=== PATIENT | male | born 1955 | race Caucasian/White ===

== ENCOUNTER 2024-08-04 12:36 | Emergency (ER) | payer MEDICARE, SELFPAY ==
[2024-08-04 12:49] VITALS: BP 131/76; PULSE 94; TEMP 36.8; O2SAT 97; BMI 35.9
[2024-08-04 13:56] VITALS: PULSE 70
[2024-08-04] MEDS: MORPHINE SULFATE 4 MG/ML VIAL 10 MG IM (15:24)
[2024-08-04] MEDS: ONDANSETRON 4 MG RAPDIS TABLET SL (15:31)
--- NOTE | 2024-08-04 15:52 | ED_ITS ---
HPI HPI - General Adult General Chief complaint: Extremity Injury, Upper Stated complaint: fall - rib pain Time Seen by Provider: 08/04/24 13:10 Source: patient Mode of arrival: walk-in Limitations: no limitations History of Present Illness HPI narrative: Patient is a 69-year-old male who is presenting to the ER with chief complaint of severe left-sided lateral chest wall/rib pain. Patient fell today. Patient was mowing the grass. Patient was out by the road. Patient had a small area he was going down and up a small ditch. Patient had slipped. Patient stated that he landed his left lateral chest wall against the street/concrete/pavement. Patient is at bedside. Patient is on Xarelto. Patient did not hit his head. Patient has no headache or neck pain. Patient has no bruising to the left side of his chest. Patient also is having mild left shoulder pain. Patient is having pain with deep inspiration. Patient has mild pain and mild bruising to left elbow, otherwise no other acute complaint. Patient did not take anything for pain prior to arrival. Patient had ice applied. No nausea, vomiting. Patient did not hit his head. No headache, neck pain, loss of co nsciousness, no other acute complaints. All systems are negative except as noted/marked. All systems reviewed and otherwise negative. Nurses note and vital signs reviewed and patient is not hypoxic. General: The patient appears moderate distress secondary to pain. Patient is resting uncomfortably on cart. Patient is not toxic, lethargic, or listless Skin: Warm, dry, no pallor noted. There is no rash noted. No petechiae, purpura. Patient has mild abrasion/bruising to left elbow. Full flexion extension supination posterior left elbow with no difficulty. Head: Normocephalic, atraumatic; no midline or paracervical tenderness to palpation. Full range of motion of cervical spine no difficulty. No scalp hematoma. Eye: Normal conjunctiva, no drainage, EOMI. PERRL Ears, Nose, Mouth, and Throat: oral mucosa is moist. Nares patent. Mouth without vesicles. Cardiovascular: Regular Rate and Rhythm, no murmur, gallop, rub. Patient has moderate to severe tenderness palpation to the left lateral chest wall, over ribs approximately 4?9. Patient has no significant tenderness to palpation to the left anterior or posterior chest wall. Patient has no crepitus. No signs of flail chest. With deep palpation to the left anterior and left posterior chest wall, it is not reproducing pain to left lateral chest wall. Respiratory: Patient is in no distress, no accessory muscle use, lungs are clear to auscultation, no wheezing, rales or rhonchi Back: non-tender, no CVA tenderness bilaterally to percussion. No CT LS midline pain GI: no tenderness to palpation, no masses appreciated. No rebound, guarding, or rigidity noted. No distention Musculoskeletal: Patient has full range of motion of all of the extremities. Patient has mild pain with flexion extension abduction of left shoulder, minimal pain to the left AC joint. No signs of fracture dislocation. No motor, sensory, or focal neurological deficits. Neurological: A&O x4, normal speech Psychiatric: Cooperative Related Data Previous Rx's ?Medication ?Instructions ?Recorded oxycodone-acetaminophen 5 mg-325 1 tab PO Q4H PRN pain #10 tabs 08/04/24 mg tablet (Percocet) Allergies Allergy/AdvReac Type Severity Reaction Status Date / Time No Known Drug Allergies Allergy Verified 08/04/24 12:49 Opioid HPI Opioid Management Most Recent Opioid Data: Last Pain Scale 7 08/04/24 15:24 08/04/24 Last ED Pain Assessment 08/04/24 13:56 Last MAR Pain Assessment 08/04/24 15:24 PFSH PFSH Social History Little interest or pleasure in doing things: not at all Feeling down, depressed, or hopeless: several days Exam Constitutional Vital Signs, click to edit/add: Last Vital Signs Temp 98.2 F 08/04/24 12:49 Pulse 70 08/04/24 13:56 Resp 18 08/04/24 12:49 BP 131/76 08/04/24 12:49 Pulse Ox 97 08/04/24 12:49 O2 Del Method Room Air 08/04/24 12:49 Course Vital Signs Vital signs: Vital Signs Temperature 98.2 F 08/04/24 12:49 Pulse Rate 94 H 08/04/24 12:49 Respiratory Rate 18 08/04/24 12:49 Blood Pressure 131/76 08/04/24 12:49 Pulse Oximetry 97 08/04/24 12:49 Oxygen Delivery Method Room Air 08/04/24 12:49 Temperature 98.2 F 08/04/24 12:49 Pulse Rate 70 08/04/24 13:56 Respiratory Rate 18 08/04/24 12:49 Blood Pressure 131/76 08/04/24 12:49 Pulse Oximetry 97 08/04/24 12:49 Oxygen Delivery Method Room Air 08/04/24 12:49 Medical Decision Making MDM Narrative Medical decision making narrative: Patient seen and examined: Clinical presentation and history is concerning for left lateral chest wall pain, rib pain, left shoulder pain Differential diagnosis includes but is not limited to: Left rib fracture, left pneumothorax, left hemothorax, left shoulder fracture, left shoulder sprain, left elbow contusion, fall Diagnostics and management: Patient will have laboratory studies Relevant laboratory interpretation: None Radiological studies: Please see the formal radiological report. CT of the chest shows no acute fracture, no acute lung injury. Reevaluation: Patient was given IM morphine 10 mg, along with Zofran prophylactically. Patient had ice applied. Initially patient was not having significant amount of pain, but he was at discharge. Patient was given a incentive spirometer. Patient was sent home with a prescription for Percocet. Patient has had pain medication At home previously with his previous left knee replacement that was done in March 2024 patient. Patient is aware of constipation and side effect to pain medication. Patient is taking Xarelto daily. Patient is aware not to take Tylenol and Percocet together. Patient was given incentive spirometer in the ER as well. Education done. Shared decision making: I discussed with the patient the necessary laboratory findings and radiological findings. Social barriers to healthcare: There are no food insecurities, there is no issue with transportation, there are no insurance barriers. Disposition: I discussed with the patient education on ice, using senna spirometer, pain medication as needed and following up with PCP. Diagnosis: Left rib contusion, left shoulder pain, left elbow pain, fall, chest wall pain Discharge Plan Discharge Chief Complaint: Extremity Injury, Upper Clinical Impression: Chest wall pain, Acute costochondritis, Left shoulder pain, Contusion of rib on left side Patient Disposition: Home, Self-Care Time of Disposition Decision: 15:41 Condition: Fair Prescriptions / Home Meds: New oxycodone-acetaminophen [Percocet] 5-325 mg tablet 1 tab PO Q4H PRN (Reason: pain) Qty: 10 0RF Print Language: Honduran Instructions: Costochondritis (ED), P.R.I.C.E. Treatment (ED), Shoulder Pain (ED), Chest Wall Pain (ED), Rib Contusion (ED) Additional Instructions: Alternate Tylenol If you are having severe pain, substitute a Percocet tablet instead of Tylenol. Do not take Tylenol and Percocet at the same time, you may actually take too much Tylenol at 1 setting or in 1 day. Maximum Tylenol dose of Tylenol is 3000 mg a day. Use ice 20 minutes on, 20 minutes off. Do not use heat. Use ice for the next 1 to 2 weeks. Use incentive spirometer 10-15 times every hour while you are awake for the next 2 weeks to help prevent atelectasis/pneumonia If you need additional pain medication, follow-up with your PCP. Use stool softeners to help prevent constipation as discussed Referrals: CELY DELUNA [Primary Care Provider] - 1 week
[2024-08-04 16:07] VITALS: PULSE 60; O2SAT 97
== END 2024-08-04 16:11 | disposition home or self-care (01) ==
PROVIDERS: Emergency Provider Emergency Medicine; Family Provider Internal Medicine; PCP Internal Medicine
DX: S20.212A Contusion of left front wall of thorax, initial encounter (principal); R07.89 Other chest pain; M94.0 Chondrocostal junction syndrome [Tietze]; M25.512 Pain in left shoulder; W01.0XXA Fall on same level from slipping, tripping and stumbling without subsequent striking against object, initial encounter; Z96.652 Presence of left artificial knee joint; Z79.01 Long term (current) use of anticoagulants
CPT/HCPCS: 71250; 73030; 94667; 96372; 99285; J2270; Q0162